=== PATIENT | male | born 1945 | race Caucasian/White ===

== ENCOUNTER 2019-04-25 15:17 | Emergency (ER) | payer SELFPAY | END 2019-04-25 19:58 | disposition home or self-care (01) | LOC: FTE 15:17 | DX: S00.33XA Contusion of nose, initial encounter (principal); S00.83XA Contusion of other part of head, initial encounter; Y04.2XXA Assault by strike against or bumped into by another person, initial encounter | CPT/HCPCS: 70450; 70486; 72125; 73110-RT; 99284-25 ==